=== PATIENT | male | born 1965 | race Two or more races ===

== ENCOUNTER 2020-10-01 21:52 | Inpatient (IN) ==
[2020-10-01 22:43] LABS: Mean Corpuscular Hemoglobin 26.3 pg (25-34); Mean Corpuscular Hgb Conc 31.6 g/dL (32-36); Mean Corpuscular Volume 83.2 fL (80-100); Mean Platelet Volume 9.6 fL (7.4-10.4); Platelet Count 298 K/uL (130-400); RDW Coefficient of Variation 12.5 % (11.5-14.5); RDW Standard Deviation 37.6 fL (36.4-46.3); Red Blood Count 4.57 M/uL (4.7-6.1); White Blood Count 7.73 K/uL (4.8-10.8)
[2020-10-01 22:55] LABS: INR 1.1 (0.9-1.1); Partial Thromboplastin Ratio 1.1; Prothrombin Time 11.1 Seconds (9.0-12.0)
[2020-10-01 23:03] LABS: Alanine Aminotransferase 11 U/L (12-78); Albumin Level 2.7 gm/dl (3.4-5.0); Aspartate Aminotransferase 19 U/L (15-37); BUN Creatinine Ratio 21.1 (10-20); Blood Urea Nitrogen 20 mg/dl (7-18); Calcium 8.3 mg/dl (8.5-10.1); Carbon Dioxide 23 mmol/L (21-32); Chloride 99 mmol/L (98-107); Creatinine Clr Calc Pharmacy 87.5 ml/min; Est GFR (Non-African American) 89.8; Glucose 197 mg/dl (70-99); Potassium 4.6 mmol/L (3.5-5.1); Sodium 133 mmol/L (136-145)
--- NOTE | 2020-10-01 23:03 | Emergency Department Note ---
Impression & Plan Pneumonia due to 2019-nCoV, Hypoxia ED Provider Note NAME: SHANEL WARREN AGE: 55 SEX: M : 1965 ARRIVES VIA: Walk-In INFORMANT: Patient, ED PROVIDER(S): John Keyes DO CHIEF COMPLAINT: Shortness of breath HPI: The patient is a 55-year-old male who presented to the emergency department for an evaluation of shortness of breath. The patient was recently diagnosed with COVID-19. He states at that time he was having symptoms consistent with COVID-19 including loss of taste and smell. Generalized weakness and difficulty breathing. He states that over the course of the last week he started to feel improved but then he started feeling worse over the last 24 hours. He started noticing significant shortness of breath with any ambulation. He started noticing a dry cough. He denies having any chest pain or swelling in the legs. He checked his pulse ox at home and it was 85%. He called his primary care ph ysician and was instructed to come to the emergency department. ROS: See above HPI for pertinent positives & negatives. A total of 10 systems reviewed and were otherwise negative. PAST MEDICAL HISTORY: See Below PAST SURGICAL HISTORY: See Below FAMILY HISTORY: See Below SOCIAL HISTORY: See Below HOME MEDICATIONS: See Below ALLERGIES: See Below VITALS: See Below PHYSICAL EXAMINATION: GENERAL: Patient is awake alert in no acute distress patient is resting comfortably and showing no signs of anxiety EYES: The conjunctivae are clear. The pupils are round and reactive. EARS, NOSE, MOUTH AND THROAT: The nose is without any evidence of any deformity. Mucous membranes are moist. Tongue is midline. NECK: The neck is nontender and supple. RESPIRATORY: Diminished breath sounds are noted throughout. There is no conversational dyspnea noted. CARDIOVASCULAR: Regular rate and rhythm noted there no murmurs rubs or gallops normal S1 normal S2. GASTROINTESTINAL: The abdomen is soft. Abdomen is nontender. MUSCULOSKELETAL/EXTREMITIES: There is no evidence of gross deformity full range of motion is noted in the hips and shoulders. SKIN: There is no obvious evidence of any rash. There are no petechiae, pallor or cyanosis noted. NEUROLOGIC: Patient is awake alert and oriented x3. MEDICAL DECISION MAKING: The patient is a 55-year-old male who presented to the emergency department for an evaluation of difficulty breathing. The patient was recently diagnosed with COVID-19 infection. He is noticed especially over the last 24 hours that he is having significant dyspnea on exertion. The patient is EKG did not show any acute change from previous. Chest x-ray does appear to be more consistent with an infiltrative process. I discussed the patient's laboratory and radiographic studies with him. He was treated with IV Decadron. He was placed on supplemental oxygen. I discussed his case with the on-call [facility] hospitalist. They have agreed to evaluate the patient in the emergency department for further management and disposition. Triage Nursing notes reviewed. Prior medical records reviewed Vital Signs: reviewed and remarkable for borderline hypoxia. Differential diagnosis: Reactive airway disease, pneumonia, pneumothorax, COPD, CHF, infections, cardiac ischemia, pulmonary embolism, musculoskeletal, gastrointestinal, as well as other pathologies. ER treatment provided: See below Diagnostics interpreted by me: ECG: EKG was obtained in the emergency department. My interpretation is normal sinus rhythm at 93 bpm. Right bundle branch block pattern was noted. There was no PVCs. This was compared to a tracing from May 11, 2018. No significant changes were noted. Cardiac Monitoring: An order was placed for continuous cardiac monitoring. The monitor shows a rate of 95 bpm with sinus rhythm. Laboratory studies: As stated above and show below. Imaging studies: See below Consultation(s): 2340: I discussed this case with Dr. Villalobos who is on-call for the [facility]. Past Med/Surg History Medical History JORDIN (acute kidney injury) COVID-19 Diabetes Psoriasis Social History Smoking Status: Never smoker Feels Safe at Home: Yes Allergies Allergies Allergy/AdvReac Type Severity Reaction Status Date / Time Bactrim AdvReac Mild GI SYMPTOMS Verified 05/15/18 00:40 sulfamethoxazole AdvReac Mild GI SYMPTOMS Verified 10/01/20 22:45 trimethoprim AdvReac Mild GI SYMPTOMS Verified 10/01/20 22:45 EGGS AdvReac Mild GI SYMPTOMS Uncoded 10/01/20 22:45 Home Meds Home Medications Medication Instructions Recorded Confirmed aspirin [Aspir-Low] 81 mg PO DAILY 10/01/20 10/01/20 atorvastatin [Lipitor] 40 mg PO DAILY 10/01/20 10/01/20 cyanocobalamin (vitamin B-12) 1,000 mcg PO DAILY 10/01/20 10/01/20 [Vitamin B-12] empagliflozin [Jardiance] 25 mg PO DAILY 10/01/20 10/01/20 fluocinonide 1 applic TOPICAL DAILY PRN 10/01/20 10/01/20 insulin aspart U-100 [Novolog See Rx Instructions .ROUTE .COMPLEX 10/01/20 10/01/20 Flexpen U-100 Insulin] insulin degludec [Tresiba 24 unit SUBCUT DAILY 10/01/20 10/01/20 FlexTouch U-200] metformin [Glucophage] 1,000 mg PO BID 10/01/20 10/01/20 ondansetron HCl 8 mg PO Q8H PRN 10/01/20 10/01/20 pantoprazole [Protonix] 40 mg PO DAILY 10/01/20 10/01/20 sertraline [Zoloft] 150 mg PO DAILY 10/01/20 10/01/20 Results & Data (ED) Vital Signs Vital Signs - 24 hr 10/01/20 21:57 10/01/20 22:39 10/01/20 23:30 Temperature 37.1 C Temperature Source Oral Pulse Rate 96 H 90 Pulse Rhythm Regular Respiratory Rate 19 22 Respiratory Effort / Characteristics Non-Labored Spontaneous Labored Respiratory Depth Normal Deep Respiratory Pattern Regular Blood Pressure 108/64 Blood Pressure Mean 78 Pulse Oximetry 91 83 L Oxygen Delivery Method Room Air Room Air Oxygen Flow Rate Sepsis Recent Fever Within 48 Hours Yes Sepsis New/Unexplained Change in Mental Status No Sepsis Action Taken by Nursing No Action Required 10/01/20 23:35 Temperature Temperature Source Pulse Rate 90 Pulse Rhythm Regular Respiratory Rate 20 Respiratory Effort / Characteristics Respiratory Depth Respiratory Pattern Blood Pressure Blood Pressure Mean Pulse Oximetry 95 Oxygen Delivery Method Nasal Cannula Oxygen Flow Rate 3 Sepsis Recent Fever Within 48 Hours Sepsis New/Unexplained Change in Mental Status Sepsis Action Taken by Custodial Medications Current Medication List: was personally reviewed by me Laboratory Data Attestation: I reviewed the patient's lab results. Result diagrams: 10/01/20 22:33 10/01/20 22:33 Lab Results 10/01/20 10/01/20 10/01/20 Range/Units 22:33 22:33 22:33 WBC 7.73 (4.8-10.8) K/uL RBC 4.57 L (4.7-6.1) M/uL Hgb 12.0 L (14.0-18.0) g/dL Hct 38.0 L (42-52) % MCV 83.2 (80-100) fL MCH 26.3 (25-34) pg MCHC 31.6 L (32-36) g/dL RDW Std Deviation 37.6 (36.4-46.3) fL RDW Coeff of Erick 12.5 (11.5-14.5) % Plt Count 298 (130-400) K/uL MPV 9.6 (7.4-10.4) fL Immature Gran % (Auto) 0.3 % Neut % (Auto) 83.2 % Lymph % (Auto) 10.1 % [facility] % (Auto) 6.3 % Eos % (Auto) 0.0 % Baso % (Auto) 0.1 % Neut # (Auto) 6.43 (1.4-6.5) K/uL Lymph # (Auto) 0.78 L (1.2-3.4) K/uL [facility] # (Auto) 0.49 (0.11-0.59) K/uL Eos # (Auto) 0.00 (0-0.5) K/uL Baso # (Auto) 0.01 (0-0.2) K/uL Immature Gran # (Auto) 0.02 (0.00-0.02) K/uL PT 11.1 (9.0-12.0) Seconds INR 1.1 (0.9-1.1) APTT 32.0 H (21.0-31.0) Seconds PTT Ratio 1.1 D-Dimer 870 H* (0-500) ug/L FEU Sodium 133 L (136-145) mmol/L Potassium 4.6 (3.5-5.1) mmol/L Chloride 99 (98-107) mmol/L Carbon Dioxide 23 (21-32) mmol/L Anion Gap 12.0 H (3-11) BUN 20 H (7-18) mg/dl Creatinine 0.95 (0.6-1.4) mg/dl Est Cr Clr Drug Dosing 87.5 ml/min Est GFR ( Amer) 104.0 Est GFR (Non-Af Amer) 89.8 BUN/Creatinine Ratio 21.1 H (10-20) Glucose 197 H (70-99) mg/dl Calcium 8.3 L (8.5-10.1) mg/dl Magnesium 2.1 (1.8-2.4) mg/dl Total Bilirubin 0.8 (0.2-1) mg/dl AST 19 (15-37) U/L ALT 11 L (12-78) U/L Alkaline Phosphatase 54 (45-117) U/L Troponin I < 0.015 (0-0.045) ng/ml NT-Pro-B Natriuret Pep 419 (0-900) pg/ml Total Protein 7.3 (6.4-8.2) gm/dl Albumin 2.7 L (3.4-5.0) gm/dl Globulin 4.6 H (2.5-4.0) gm/dl Albumin/Globulin Ratio 0.6 L (0.9-2) COVID-19 Eval Order SARS-CoV-2, RNA, NAAT (NEGATIVE) Blood Type Antibody Screen 10/01/20 10/01/20 10/01/20 Range/Units 22:33 22:41 22:41 WBC (4.8-10.8) K/uL RBC (4.7-6.1) M/uL Hgb (14.0-18.0) g/dL Hct (42-52) % MCV (80-100) fL MCH (25-34) pg MCHC (32-36) g/dL RDW Std Deviation (36.4-46.3) fL RDW Coeff of Erick (11.5-14.5) % Plt Count (130-400) K/uL MPV (7.4-10.4) fL Immature Gran % (Auto) % Neut % (Auto) % Lymph % (Auto) % [facility] % (Auto) % Eos % (Auto) % Baso % (Auto) % Neut # (Auto) (1.4-6.5) K/uL Lymph # (Auto) (1.2-3.4) K/uL [facility] # (Auto) (0.11-0.59) K/uL Eos # (Auto) (0-0.5) K/uL Baso # (Auto) (0-0.2) K/uL Immature Gran # (Auto) (0.00-0.02) K/uL PT (9.0-12.0) Seconds INR (0.9-1.1) APTT (21.0-31.0) Seconds PTT Ratio D-Dimer (0-500) ug/L FEU Sodium (136-145) mmol/L Potassium (3.5-5.1) mmol/L Chloride (98-107) mmol/L Carbon Dioxide (21-32) mmol/L Anion Gap (3-11) BUN (7-18) mg/dl Creatinine (0.6-1.4) mg/dl Est Cr Clr Drug Dosing ml/min Est GFR ( Amer) Est GFR (Non-Af Amer) BUN/Creatinine Ratio (10-20) Glucose (70-99) mg/dl Calcium (8.5-10.1) mg/dl Magnesium (1.8-2.4) mg/dl Total Bilirubin (0.2-1) mg/dl AST (15-37) U/L ALT (12-78) U/L Alkaline Phosphatase (45-117) U/L Troponin I (0-0.045) ng/ml NT-Pro-B Natriuret Pep (0-900) pg/ml Total Protein (6.4-8.2) gm/dl Albumin (3.4-5.0) gm/dl Globulin (2.5-4.0) gm/dl Albumin/Globulin Ratio (0.9-2) COVID-19 Eval Order Covid19 IDNow [facility] SARS-CoV-2, RNA, NAAT POSITIVE A* (NEGATIVE) Blood Type AB Positive Antibody Screen NEGATIVE Imaging Data Attestation: I personally reviewed and interpreted this imaging study as follows: My Impression: 1 view the chest x-ray was obtained in the emergency department. My interpretation is borderline cardiomegaly. There is no free air. Diffuse interstitial infiltrates were noted. This was compared to a chest x-ray from September [id number]. There is an increase in the interstitial markings. Blood Pressure Blood Pressure Findings: Normal blood pressure Discharge Plan Visit Data Chief Complaint: Shortness of Breath/Dyspnea Stated Complaint: OXGYEN LEVEL IS LOW ED Provider: John Keyes Discharge Problem: Pneumonia due to 2019-nCoV, Hypoxia Patient Disposition: Being Evaluated by Hospitalist Condition: Good Forms Stand Alone Forms: My [facility] [employer] Prescriptions Prescriptions: No Action atorvastatin [Lipitor] 40 mg tablet 40 mg PO DAILY RF: 0 sertraline [Zoloft] 100 mg tablet 150 mg PO DAILY RF: 0 cyanocobalamin (vitamin B-12) [Vitamin B-12] 1,000 mcg Tablet 1,000 mcg PO DAILY RF: 0 fluocinonide 0.05 % ointment 1 applic TOPICAL DAILY PRN (Reason: flare ups) RF: 0 pantoprazole [Protonix] 40 mg tablet,delayed release (DR/EC) 40 mg PO DAILY RF: 0 metformin [Glucophage] 1,000 mg tablet 1,000 mg PO BID RF: 0 insulin aspart U-100 [Novolog Flexpen U-100 Insulin] 100 unit/mL (3 mL) insulin pen See Rx Instructions .ROUTE .COMPLEX RF: 0 Tresiba FlexTouch U-200 200 unit/mL (3 mL) insulin pen 24 unit SUBCUT DAILY RF: 0 Jardiance 25 mg tablet 25 mg PO DAILY RF: 0 ondansetron HCl 8 mg Tablet 8 mg PO Q8H PRN (Reason: Nausea) RF: 0 aspirin [Aspir-Low] 81 mg Tablet,Delayed Release (Dr/Ec) 81 mg PO DAILY RF: 0 Referrals Referrals: Jacob Reyes DO [Primary Care Provider] -
[2020-10-01 23:08] LABS: Albumin Globulin Ratio 0.6 (0.9-2); Alkaline Phosphatase 54 U/L (45-117); Bilirubin,Total 0.8 mg/dl (0.2-1); Globulin 4.6 gm/dl (2.5-4.0); NT Pro B Type Natriuretic Pept 419 pg/ml (0-900); Total Protein 7.3 gm/dl (6.4-8.2); Troponin I < 0.015 ng/ml (0-0.045)
[2020-10-01 23:22] LABS: D Dimer 870 ug/L FEU (0-500)
[2020-10-01 23:28] LABS: Basophils # (auto) 0.01 K/uL (0-0.2); Basophils % (auto) 0.1 %; Immature Granulocytes # (auto) 0.02 K/uL (0.00-0.02); Immature Granulocytes % (auto) 0.3 %; Lymphocytes # (auto) 0.78 K/uL (1.2-3.4); Lymphocytes % (auto) 10.1 %; Monocytes # (auto) 0.49 K/uL (0.11-0.59); Monocytes % (auto) 6.3 %; Neutrophils # (auto) 6.43 K/uL (1.4-6.5); Neutrophils % (auto) 83.2 %
[2020-10-01] MEDS ORDERED: DEXAMETHASONE SOD INJ 10 MG/ML VIAL IV ONE (23:37)
[2020-10-01 23:59] LABS: Magnesium 2.1 mg/dl (1.8-2.4)
[2020-10-02] MEDS ORDERED: ALBUTEROL HFA 8 GM INHALER INH ONE (00:37)
--- NOTE | 2020-10-02 01:03 | History & Physical Report ---
Date of Service October 02, 2020 Assessment & Plan (1) Acute hypoxemic respiratory failure: Severe COVID-19 pneumonia DM2 insulin requiring, well-controlled as of recent outpatient hemoglobin A1c of 6.03 July 2020 hyperlipidemia on statin Rx chronic anemia, hemoglobin better than baseline likely secondary to hemoconcentration from clinical dehydration past alcohol abuse Medical telemetry Supplemental O2 Decadron course Remdesivir first dose now Pulmonary consult Re: Hypoxemic respiratory failure, severe COVID-19 pneumonia Basal insulin, ISS BG goal [id number], carb count coverage, update hemoglobin A1c DVT prophylaxis per Lovenox subcu Full code Text document was generated using [employer] voice recognition software. It may contain grammatical or spelling errors. Kindly contact undersigned for clarification of any documentation item in question. History of Present Illness Chief Complaint: Low O2 Primary Care Provider: Jacob Reyes, History obtained from patient and records. Medical history significant for DM2 insulin requiring, hyperlipidemia, chronic anemia (baseline hemoglobin of 11), past alcohol abuse. Last week patient noted generalized weakness, chills, fatigue symptoms. Sick COVID-19 contacts at home. Outpatient COVID-19 test noted to be positive. Patient advised to quarantine and to adhere to supportive management at home. Yesterday, patient noted shortness of breath worse on exertion with dry cough symptoms. No chest pain. O2 sats noted to be 80s on pulse ox at home. At the ER, patient received Decadron. Medical History as above Surgical History : Cataract surgery Family History : Diabetes, stroke Personal/Social history : Non-smoker, possible alcohol abuse, [place] ethnicity Allergies Allergy/AdvReac Type Severity Reaction Status Date / Time Bactrim AdvReac Mild GI SYMPTOMS Verified 05/15/18 00:40 sulfamethoxazole AdvReac Mild GI SYMPTOMS Verified 10/01/20 22:45 trimethoprim AdvReac Mild GI SYMPTOMS Verified 10/01/20 22:45 EGGS AdvReac Mild GI SYMPTOMS Uncoded 10/01/20 22:45 Home Medications Medication Instructions Recorded Confirmed Type aspirin [Aspir-Low] 81 mg PO DAILY 10/01/20 10/01/20 History atorvastatin [Lipitor] 40 mg PO DAILY 10/01/20 10/01/20 History cyanocobalamin (vitamin B-12) 1,000 mcg PO DAILY 10/01/20 10/01/20 History [Vitamin B-12] empagliflozin [Jardiance] 25 mg PO DAILY 10/01/20 10/01/20 History fluocinonide 1 applic TOPICAL DAILY PRN 10/01/20 10/01/20 History insulin aspart U-100 [Novolog See Rx Instructions .ROUTE .COMPLEX 10/01/20 10/01/20 History Flexpen U-100 Insulin] insulin degludec [Tresiba 24 unit SUBCUT DAILY 10/01/20 10/01/20 History FlexTouch U-200] metformin [Glucophage] 1,000 mg PO BID 10/01/20 10/01/20 History ondansetron HCl 8 mg PO Q8H PRN 10/01/20 10/01/20 History pantoprazole [Protonix] 40 mg PO DAILY 10/01/20 10/01/20 History sertraline [Zoloft] 150 mg PO DAILY 10/01/20 10/01/20 History Past Med/Surg History Medical History JORDIN (acute kidney injury) COVID-19 Diabetes Psoriasis Social History Smoking Status: Never smoker Feels Safe at Home: Yes Review of Systems Review of Systems: As per HPI, all 10 systems reviewed, all other ROS negative Physical Exam Physical Exam: GENERAL: Comfortable, pleasant, no respiratory distress SKIN: Pallor , warm HEENT: Partial alopecia, bespectacled, pale palpebral conjunctivae, no ptosis, dry buccal mucosa, nasal cannula in place NECK : Supple, no tenderness CHEST : Decreased breath sounds, occasional expiratory wheezes, no tenderness HEART : RRR, no obvious murmurs ABDOMEN: Some distention, nontender EXTREMITIES : No LE swelling/tenderness, no other conspicuous deformities noted NEUROLOGIC : Coherent, no facial asymmetry, no other gross focality Results & Data Results & Data ([facility]) Vital Signs (Past 12 Hours) Vital Signs Temp Pulse Resp BP Pulse Ox 10/01/20 23:35 90 20 95 10/01/20 23:30 90 22 83 L 10/01/20 22:34 91 H 39 H 122/75 90 10/01/20 21:57 37.1 C 96 H 19 108/64 91 Laboratory Results Laboratory Results WBC 7.73 K/uL (4.8-10.8) 10/01/20 22: RBC 4.57 M/uL (4.7-6.1) L 10/01/20 22:33 Hgb 12.0 g/dL (14.0-18.0) L 10/01/20 22:33 Hct 38.0 % (42-52) L 10/01/20 22:33 MCV 83.2 fL (80-100) 10/01/20 22:33 MCH 26.3 pg (25-34) 10/01/20 22: MCHC 31.6 g/dL (32-36) L 10/01/20 22:33 RDW Std Deviation 37.6 fL (36.4-46.3) 10/01/20 22: RDW Coeff of Erick 12.5 % (11.5-14.5) 10/01/20: Plt Count 298 K/uL (130-400) 10/01/20 22: MPV 9.6 fL (7.4-10.4) 10/01/20 22:33 Immature Gran % (Auto) 0.3 % 10/01/20 22:33 Neut % (Auto) 83.2 % 10/01/20 22:33 Lymph % (Auto) 10.1 % 10/01/20 22:33 [place] % (Auto) 6.3 % 10/01/20 22:33 Eos % (Auto) 0.0 % 10/01/20 22:33 Baso % (Auto) 0.1 % 10/01/20 22:33 Neut # (Auto) 6.43 K/uL (1.4-6.5) 10/01/20 22:33 Lymph # (Auto) 0.78 K/uL (1.2-3.4) L 10/01/20 22:33 [place] # (Auto) 0.49 K/uL (0.11-0.59) 10/01/20 22:33 Eos # (Auto) 0.00 K/uL (0-0.5) 10/01/20 22:33 Baso # (Auto) 0.01 K/uL (0-0.2) 10/01/20 22:33 Immature Gran # (Auto) 0.02 K/uL (0.00-0.02) 10/01/20 22:33 PT 11.1 Seconds (9.0-12.0) 10/01/20 22:33 INR 1.1 (0.9-1.1) 10/01/20 22:33 APTT 32.0 Seconds (21.0-31.0) H 10/01/20 22:33 PTT Ratio 1.1 10/01/20 22:33 D-Dimer 870 ug/L FEU (0-500) H* 10/01/20 22:33 Sodium 133 mmol/L (136-145) L 10/01/20 22:33 Potassium 4.6 mmol/L (3.5-5.1) 10/01/20 22:33 Chloride 99 mmol/L (98-107) 10/01/20 22:33 Carbon Dioxide 23 mmol/L (21-32) 10/01/20 22:33 Anion Gap 12.0 (3-11) H 10/01/20 22:33 BUN 20 mg/dl (7-18) H 10/01/20 22:33 Creatinine 0.95 mg/dl (0.6-1.4) 10/01/20 22:33 Est Cr Clr Drug Dosing 87.5 ml/min 10/01/20 22:33 Est GFR ( Amer) 104.0 10/01/20 22:33 Est GFR (Non-Af Amer) 89.8 10/01/20 22:33 BUN/Creatinine Ratio 21.1 (10-20) H 10/01/20 22:33 Glucose 197 mg/dl (70-99) H 10/01/20 22:33 Calcium 8.3 mg/dl (8.5-10.1) L 10/01/20 22:33 Magnesium 2.1 mg/dl (1.8-2.4) 10/01/20 22:33 Total Bilirubin 0.8 mg/dl (0.2-1) 10/01/20 22:33 AST 19 U/L (15-37) 10/01/20 22:33 ALT 11 U/L (12-78) L 10/01/20 22:33 Alkaline Phosphatase 54 U/L (45-117) 10/01/20 22:33 Troponin I < 0.015 ng/ml (0-0.045) 10/01/20 22:33 NT-Pro-B Natriuret Pep 419 pg/ml (0-900) 10/01/20 22:33 Total Protein 7.3 gm/dl (6.4-8.2) 10/01/20 22:33 Albumin 2.7 gm/dl (3.4-5.0) L 10/01/20 22:33 Globulin 4.6 gm/dl (2.5-4.0) H 10/01/20 22:33 Albumin/Globulin Ratio 0.6 (0.9-2) L 10/01/20 22:33 COVID-19 Eval Order Covid19 IDNow [facility] 10/01/20 22:41 SARS-CoV-2, RNA, NAAT POSITIVE (NEGATIVE) A* 10/01/20 22:41 Blood Type AB Positive 10/01/20 22:33 Antibody Screen NEGATIVE 10/01/20 22:33 Diagnostic Findings Chest x-ray as per my interpretation atelectasis, interstitial infiltrates EKG as per my interpretation : Rate 95, NSR, normal axis, right bundle branch block, no ischemia
[2020-10-02 01:38] LABS: Base Excess ABG -3.8 mEq/L (-9-1.8); HCO3 ABG 21 mmol/L (19-24); Oxygen Saturation ABG 92.9 % (90-95); PCO2 ABG 36 mmHg (35-46); PO2 ABG 73 mmHg (80-95); pH ABG 7.38 (7.35-7.45)
[2020-10-02 01:50] LABS: Allen Test POS (Pos)
[2020-10-02] MEDS ORDERED: SODIUM CHLORIDE 0.9% 1000ML 1,000 ML IV ONE (03:00)
[2020-10-02] MEDS ORDERED: INSULIN GLARGINE SOLOSTAR 100 UNITS/ML 3 ML PEN SC STA (03:00)
[2020-10-02] MEDS ORDERED: GLUCOSE 10 TABS/TUBE PO PRN (07:03)
[2020-10-02] MEDS ORDERED: GLUCAGON FOR INJ 1 MG VIAL SQ PRN (07:03)
[2020-10-02] MEDS ORDERED: GLUCOSE 40% GEL 15 GM TUBE PO PRN (07:03)
[2020-10-02] MEDS ORDERED: CARBOHYDRATES FOR HYPOGLYCEMIA PO PRN (07:03)
[2020-10-02] MEDS ORDERED: PROMETHAZINE HCL 12.5 MG in SODIUM CHLORIDE 0.9% 50 ML IV PRN (07:03)
[2020-10-02] MEDS ORDERED: ACETAMINOPHEN 325 MG TAB PO PRN (07:03)
[2020-10-02] MEDS ORDERED: traMADol HCL 50 MG TABLET PO PRN (07:03)
[2020-10-02] MEDS ORDERED: DEXTROSE 50% 50 ML SYRINGE IV PRN (07:03)
--- NOTE | 2020-10-02 07:36 | XRay Report ---
XR chest 1V portable CLINICAL HISTORY: Dyspnea COMPARISON STUDY: 09/23/2020 FINDINGS: The heart is borderline enlarged. Since the prior study, the patient developed bilateral pu lmonary opacities. Diagnostic considerations include multifocal pneumonia versus congestive failure. Correlation with Covid 19 testing recommended.[ IMPRESSION: 1. Bilateral predominantly interstitial airspace opacities. Diagnostic considerations include multifo ector pneumonia versus congestive failure. Clinical and radiographic follow-up is recommended. ACT 112: Negative or not required by law. Electronically signed by: Vimal Barrientos M.D. 10/02/2020 7:35 AM
[2020-10-02] MEDS ORDERED: REMDESIVIR 200 MG in SODIUM CHLORIDE 0.9% 210 ML IV ONE (07:45)
[2020-10-02] MEDS: SERTRALINE HCL 50 MG TABLET PO SCH (07:56)
[2020-10-02] MEDS: ASPIRIN 81 MG ECTAB PO SCH (07:56)
[2020-10-02] MEDS: ATORVASTATIN 40 MG TAB PO SCH (07:56)
[2020-10-02] MEDS: PANTOprazole 40 MG TAB PO SCH (07:56)
[2020-10-02] MEDS: guaiFENesin 600 MG TABCR PO SCH ×2 (07:56→20:03)
[2020-10-02] MEDS: CYANOCOBALAMIN 500 MCG TABLET (VITAMIN B-12) PO SCH (07:56)
[2020-10-02] MEDS: ENOXAPARIN INJ 40 MG/0.4 ML SYR SQ SCH (07:57)
[2020-10-02] MEDS: INSULIN ASPART 100 UNITS/ML 3 ML PEN SC SCH ×4 (08:36→20:39)
[2020-10-02] MEDS ORDERED: SODIUM CHLORIDE 0.9% 10ML FLUSH IV SCH (09:45)
[2020-10-02] MEDS: ALBUTEROL HFA 8 GM INHALER INH SCH ×3 (11:23→20:20)
--- NOTE | 2020-10-02 11:40 | Electrocardiogram Report ---
Test Reason : Blood Pressure : / mmHG Vent. Rate : 093 BPM Atrial Rate : 093 BPM P-R Int : 192 ms QRS Dur : 138 ms QT Int : 406 ms P-R-T Axes : 001 105 029 degrees QTc Int : 504 ms Normal sinus rhythm Right bundle branch block Abnormal ECG When compared with ECG of 11-MAY-2018 06:42, No significant change was found Confirmed by John Sheikh ([id number]) on 10/02/2020 11:40:41 AM Referred By: REFERRED SELF Confirmed By:John Sheikh
[2020-10-02 12:08] LABS: C Reactive Protein 15.3 mg/dl (0-0.29); Ferritin 633.6 ng/ml (8-388)
--- NOTE | 2020-10-02 13:58 | Communication Note ---
Date of Service: October 02, 2020 I did a chart review of this patient. Patient was not physically seen due to the COVID-19 pandemic and an effort to reduce PPE utilization and reduce ex posure risk. Patient with evidence of Covid pneumonia and hypoxemic respiratory failure. Chest x-ray demonstrates mild bilateral interstitial infiltrates with lower lobe atelectasis. COVID-19 testing was positive on 09/23/2020 and 10/01/2020. Remdesivir likely has minimal benefit in this patient given that he was Covid positive over 1 week ago. Procalcitonin was 0.12. Antibiotics are not indicated at this time. Decadron can be continued for 7 to 10 days. Recommend usual supportive care such as self proning, ambulation and incentive spirometry. I would recommend discontinuing the IV fluids and using Lasix on a as needed basis. Continue to maintain saturations between 92 and 94% with supplemental oxygen. Please call with questions. Thank you.
[2020-10-02] MEDS ORDERED: FUROSEMIDE 40 MG in SYRINGE 0 ML IV ONE (16:00)
--- NOTE | 2020-10-02 17:59 | Hospitalist Progress Note ---
Date of Service October 02, 2020 Assessment & Plan (1) Acute hypoxemic respiratory failure: Acute respiratory failure with hypoxia Multifocal COVID pneumonia COVID Screen:Positive CXR:Bilateral predominantly interstitial airspace opacities. Diagnostic considerations include multifocal pneumonia versus congestive failure. Clinical and radiographic follow-up is recommended. Procalcitonin:0.12 Troponin negative CRP:15.30 Ferritin:633.6 D-Dimer:870 Blood Cultures:Pending Continue Remdesivir, Dexamethasone as per Protocol Coalescent plasma when available as per patient's consent Cotinue Isolation precautions--Airborne/Contact Encouraged frequent Proning Lasix as needed Albuterol PRN Continue Supplemental Oxygen as needed DVT prophylaxis Monitor LFTs, renal function while on Remdesivir No indication for antibiotics currently DM II HhA1C: 6.03 July 2020 Hold PO meds Continue insulin therapy while hospitalized Monitor BGs Glycemic Pharmacy consulted Hyperlipidemia On Lipitor Monitor LFTs Elevated D dimer Due to COVID Consider further work up if clinically indicated Chronic Normocytic Anemia Monitor CBC Past alcohol abuse As per records DVT Px: Lovenox SQ Code Status Full code Admission and Anticipated Discharge Date Admission Date: October 02, 2020 Subjective Patient is seen and examined at bedside States feeling much better today Appetite improved today Less cough Denies chest pain, shortness of breath, dizziness, nausea, abdominal pain, diarrhea, headache Offers no other complaints Saturating low 90s on 2 L of supplemental oxygen Review of Systems Review of Systems: All systems reviewed & are unremarkable except as noted in HPI & below Physical Exam Physical Exam: Physical Exam: Vitals signs as noted above General Appearance:Moderately built and nourished, no apparent distress Head: normocephalic, Atraumatic Eyes: normal inspection, EOMI Neck: supple, Trachea midline Respiratory/Chest: Normal breath sounds, Minimal basal crackles Cardiovascular: S1, S2, No murmur Abdomen/GI:Soft, Non tender, Bowel sounds present Extremities/Musculoskelatal:normal inspection, no edema Neurologic/Psych:AAOX3, grossly no focal neurological deficits Skin: normal color, warm, +Psoriatic Lesions on extremities Results & Data Results & Data ([facility]) Vital Signs (Past 12 Hours) Vital Signs Temp Pulse Pulse Resp BP BP Pulse Ox 10/02/20 16:45 36.6 C 80 20 135/80 90 10/02/20 16:00 81 10/02/20 15:31 71 18 97 10/02/20 11:50 36.4 C L 77 20 112/70 91 10/02/20 11:24 78 18 95 10/02/20 07:23 78 10/02/20 07:01 36.9 C 20 142/75 H 95 10/02/20 06:37 78 25 H 111/63 95 10/02/20 06:00 79 25 H 127/72 92 Laboratory Results Short CBC 10/01/20 Range/Units 22:33 WBC 7.73 (4.8-10.8) K/uL Hgb 12.0 L (14.0-18.0) g/dL Hct 38.0 L (42-52) % Plt Count 298 (130-400) K/uL BMP 10/01/20 22:33 Sodium 133 L Potassium 4.6 Chloride 99 Carbon Dioxide 23 BUN 20 H Creatinine 0.95 Glucose 197 H Calcium 8.3 L Cardiac Enzymes 10/01/20 10/02/20 Range/Units 22:33 11:07 Total Creatine Kinase 67 (39-308) U/L Troponin I < 0.015 (0-0.045) ng/ml Liver Function 10/01/20 Range/Units 22:33 Total Bilirubin 0.8 (0.2-1) mg/dl AST 19 (15-37) U/L ALT 11 L (12-78) U/L Alkaline Phosphatase 54 (45-117) U/L Albumin 2.7 L (3.4-5.0) gm/dl
[2020-10-02] MEDS ORDERED: PHARMACY GLYCEMIC MGMT CONSULT PRN (19:08)
[2020-10-02] MEDS ORDERED: INSULIN GLARGINE SOLOSTAR 100 UNITS/ML 3 ML PEN SC ONE (19:15)
[2020-10-02] MEDS ORDERED: INSULIN GLARGINE SOLOSTAR 100 UNITS/ML 3 ML PEN SC SCH (21:00)
[2020-10-03] MEDS: dexAMETHasone 6 MG in SYRINGE 0 ML IV SCH (00:47)
[2020-10-03] MEDS: INSULIN ASPART 100 UNITS/ML 3 ML PEN SC SCH ×6 (01:01→20:08)
[2020-10-03 07:19] LABS: Basophils # (auto) 0.01 K/uL (0-0.2); Basophils % (auto) 0.2 %; Hematocrit (blood only) 36.6 % (42-52); Hemoglobin 11.7 g/dL (14.0-18.0); Immature Granulocytes # (auto) 0.01 K/uL (0.00-0.02); Immature Granulocytes % (auto) 0.2 %; Lymphocytes # (auto) 0.58 K/uL (1.2-3.4); Lymphocytes % (auto) 9.6 %; Mean Corpuscular Hemoglobin 26.3 pg (25-34); Mean Corpuscular Volume 82.2 fL (80-100); Mean Platelet Volume 10.1 fL (7.4-10.4); Monocytes # (auto) 0.34 K/uL (0.11-0.59); Monocytes % (auto) 5.6 %; Neutrophils # (auto) 5.11 K/uL (1.4-6.5); Neutrophils % (auto) 84.4 %; Platelet Count 430 K/uL (130-400); RDW Coefficient of Variation 12.4 % (11.5-14.5); RDW Standard Deviation 37.5 fL (36.4-46.3); Red Blood Count 4.45 M/uL (4.7-6.1); White Blood Count 6.05 K/uL (4.8-10.8)
[2020-10-03] MEDS: ALBUTEROL HFA 8 GM INHALER INH SCH ×2 (07:24→11:29)
[2020-10-03 07:50] LABS: Alanine Aminotransferase 12 U/L (12-78); Albumin Level 2.6 gm/dl (3.4-5.0); Aspartate Aminotransferase 18 U/L (15-37); BUN Creatinine Ratio 39.1 (10-20); Blood Urea Nitrogen 28 mg/dl (7-18); Calcium 8.9 mg/dl (8.5-10.1); Carbon Dioxide 27 mmol/L (21-32); Chloride 103 mmol/L (98-107); Creatinine Clr Calc Pharmacy 118.9 ml/min; Est GFR (African American) 123.1; Est GFR (Non-African American) 106.2; Glucose 161 mg/dl (70-99); Potassium 4.7 mmol/L (3.5-5.1); Sodium 138 mmol/L (136-145)
[2020-10-03 07:55] LABS: Albumin Globulin Ratio 0.5 (0.9-2); Alkaline Phosphatase 58 U/L (45-117); Bilirubin,Total 0.7 mg/dl (0.2-1); Globulin 4.9 gm/dl (2.5-4.0); Total Protein 7.5 gm/dl (6.4-8.2); Troponin I < 0.015 ng/ml (0-0.045)
[2020-10-03] MEDS: ASPIRIN 81 MG ECTAB PO SCH (08:21)
[2020-10-03] MEDS: ATORVASTATIN 40 MG TAB PO SCH (08:21)
[2020-10-03] MEDS: SERTRALINE HCL 50 MG TABLET PO SCH (08:21)
[2020-10-03] MEDS: CYANOCOBALAMIN 500 MCG TABLET (VITAMIN B-12) PO SCH (08:21)
[2020-10-03] MEDS: PANTOprazole 40 MG TAB PO SCH (08:21)
[2020-10-03] MEDS: guaiFENesin 600 MG TABCR PO SCH ×2 (08:22→20:02)
[2020-10-03 08:46] LABS: Estimated Average Glucose 177 mg/dl; Hemoglobin A1C 7.8 % (4.5-5.6)
[2020-10-03] MEDS: ENOXAPARIN INJ 40 MG/0.4 ML SYR SQ SCH (10:28)
[2020-10-03 12:27] LABS: Appearance Urine Clear (Clear); Bilirubin Urine Negative (Negative); Blood Urine Negative (Negative); Color Urine Yellow; Glucose Urine UA 3+ (Negative); Ketones Urine 1+ (Negative); Leukocyte Esterase Urine Negative (Negative); Nitrite Urine Negative (Negative); Protein Urine Negative (Negative); Specific Gravity Urine 1.028 (1.000-1.030); Urobilinogen Urine Negative (Negative)
[2020-10-03] MEDS: REMDESIVIR 100 MG in SODIUM CHLORIDE 0.9% 230 ML IV SCH (12:49)
[2020-10-03] MEDS ORDERED: ALBUTEROL HFA 8 GM INHALER INH PRN (13:19)
--- NOTE | 2020-10-03 14:19 | Pharmacy Report ---
Glycemic Control Consultation - Date of Service October 03, 2020 - Scope Scope: Glycemic Pharmacist consulted for glycemic control and to write orders per [facility] inpatient glycemic control protocol. - Objective Weight: 70.5 kg Accuchecks BSG (last 24hrs): 10/02/20 10/02/20 10/02/20 16:42 16:43 19:58 Glucose POC Glucose 317 H* 321 H* 277 H 10/03/20 10/03/20 10/03/20 00:43 04:31 06:41 Glucose 161 H POC Glucose 243 H 157 H 10/03/20 11:54 Glucose POC Glucose 268 H Laboratory Data (last 24hrs): 10/03/20 06:41 Potassium 4.7 Carbon Dioxide 27 Anion Gap 8.0 Creatinine 0.70 Est Cr Clr Drug Dosing 118.9 HbA1c: Hemoglobin A1c 7.8 % (4.5-5.6) H 10/03/20 06:41 - Recent Pertinent Medications Outpatient Anti-diabetic Regimen: * Jardiance 25 mg daily + metformin 1 gm BIDM + Tresiba 24 units daily + Novolog 10 units + 7 units with meals * A1c = 7.8 % 10/03/20 The patient is currently receiving: * Basal insulin: Lantus 35 units SQ x 1 * Correctional Insulin: Novolog Correction per scale ACHS Goal Range: Low 110 mg/dL - High 140 mg/dL Correction Factor: 25 mg/dL/unit * Prandial insulin: Per carb ratio of 1 unit per 8 grams CHO consumed * Oral Agents: Risk Factors for Insulin Resistance: * Steroids: dexamethasone 6 mg IV daily * Diet: T2DM - Assessment & Plan Assessment & Plan: ASSESSMENT: * Mr Trevino is a 55 y/o M with a PMH of reasonably controlled T2DM on insulin and oral medications who presents with COVID-19. Patient initially given dexamethasone 10 mg at 0200 on 10/02/20. Pharmacy consulted in the evening of 10/02/20 with blood sugars yesterday being [phone] mg/dL. * Patient given Lantus 35 units (1.5x home dose) since morning dose missed. Patient received additional 6 units of Novolog overnight. Fasting BSG was 157 mg/dL. Dexamethasone 6 mg IV given at midnight on 10/03/20. * Due to timing of dexamethasone did not give NPH (would have been 8 hours after dose). Readjusted timing of dexamethasone to be at 0900 tomorrow. * Continue home dose of Lantus 24 units. * Due to elevated lunch BSG tightened Novolog parameters. * Hold oral medications. PLAN FOR INPATIENT GLYCEMIC CONTROL: * Holding outpatient oral diabetes medications * Basal insulin * Lantus 24 units SQ nightly * Bolus insulin * NovoLog per scale ACHS or Q6hrs while NPO * Goal Range: Low 110 mg/dL - High 140 mg/dL * Correction Factor: 20 mg/dL/unit * Nutritional / Prandial insulin per carb ratio of 1 unit per 6 grams CHO consumed * Please note that the plan above was derived based on current level of insulin resistance and hospital stress. These recommendations are appropriate for inpatient admission only. Plan of care upon discharge will need to be reassessed to avoid potential outpatient hypo/hyperglycemia. Thank you.
[2020-10-03] MEDS: SODIUM CHLORIDE 0.9% 10ML FLUSH IV SCH (15:06)
--- NOTE | 2020-10-03 18:38 | Hospitalist Progress Note ---
Date of Service October 03, 2020 Assessment & Plan (1) Acute hypoxemic respiratory failure: Acute respiratory failure with hypoxia Multifocal COVID pneumonia COVID Screen:Positive CXR:Bilateral predominantly interstitial airspace opacities. Diagnostic considerations include multifocal pneumonia versus congestive failure. Clinical and radiographic follow-up is recommended. Procalcitonin:0.12 Troponin negative CRP:15.30 Ferritin:633.6 D-Dimer:870 Blood Cultures:No growth to date Continue Remdesivir, Dexamethasone as per Protocol Coalescent plasma when available as per patient's consent-- Will administer when available Continue Isolation precautions--Airborne/Contact Encouraged frequent Proning Lasix as needed Albuterol PRN Continue Supplemental Oxygen--wean off as able DVT prophylaxis Monitor LFTs, renal function while on Remdesivir No indication for antibiotics currently Continue current medications DM II HhA1C: 6.03 July 2020 Hold PO meds Continue insulin therapy while hospitalized Monitor BGs Glycemic Pharmacy consulted Hyperlipidemia On Lipitor Monitor LFTs Elevated D dimer Due to COVID Consider further work up if clinically indicated Chronic Normocytic Anemia Monitor CBC Past alcohol abuse As per records DVT Px: Lovenox SQ Code Status Full code Admission and Anticipated Discharge Date Admission Date: October 02, 2020 Subjective Patient is seen and examined at bedside No new complaints Minimal cough Still requiring oxygen to maintain Sats Denies chest pain, shortness of breath, dizziness, nausea, abdominal pain, diarrhea, headache Review of Systems Review of Systems: All systems reviewed & are unremarkable except as noted in HPI & below Physical Exam Physical Exam: Physical Exam: Vitals signs as noted above General Appearance:Moderately built and nourished, no apparent distress Head: normocephalic, Atraumatic Eyes: normal inspection, EOMI Neck: supple, Trachea midline Respiratory/Chest: Normal breath sounds, Minimal R basal crackles Cardiovascular: S1, S2, No murmur Abdomen/GI:Soft, Non tender, Bowel sounds present Extremities/Musculoskelatal:normal inspection, no edema Neurologic/Psych:AAOX3, grossly no focal neurological deficits Skin: normal color, warm, +Psoriatic Lesions on extremities Results & Data Results & Data ([facility]) Vital Signs (Past 12 Hours) Vital Signs Temp Pulse Pulse Resp BP Pulse Ox 10/03/20 17:09 36.6 C 73 18 128/77 91 10/03/20 15:49 76 10/03/20 12:06 36.5 C 74 18 124/75 90 12/07/20 11:29 74 18 93 10/03/20 08:34 36.4 C L 20 133/71 90 10/03/20 07:31 63 10/03/20 07:25 70 18 93 Laboratory Results Short CBC 10/03/20 Range/Units 06:41 WBC 6.05 (4.8-10.8) K/uL Hgb 11.7 L (14.0-18.0) g/dL Hct 36.6 L (42-52) % Plt Count 430 H (130-400) K/uL BMP 10/03/20 06:41 Sodium 138 Potassium 4.7 Chloride 103 Carbon Dioxide 27 BUN 28 H Creatinine 0.70 Glucose 161 H Calcium 8.9 Cardiac Enzymes 10/03/20 Range/Units 06:41 Troponin I < 0.015 (0-0.045) ng/ml Liver Function 10/03/20 Range/Units 06:41 Total Bilirubin 0.7 (0.2-1) mg/dl AST 18 (15-37) U/L ALT 12 (12-78) U/L Alkaline Phosphatase 58 (45-117) U/L Albumin 2.6 L (3.4-5.0) gm/dl Urine 10/03/20 Range/Units 12:10 Urine Color Yellow Urine Appearance Clear (Clear) Urine pH 5.0 (4.5-7.5) Ur Specific [place] 1.028 (1.000-1.030) Urine Protein Negative (Negative) Urine Glucose (UA) 3+ H (Negative)
[2020-10-03] MEDS ORDERED: INSULIN GLARGINE SOLOSTAR 100 UNITS/ML 3 ML PEN SC SCH (21:00)
[2020-10-04] MEDS: guaiFENesin 600 MG TABCR PO SCH ×2 (07:58→20:34)
[2020-10-04] MEDS: SERTRALINE HCL 50 MG TABLET PO SCH (07:58)
[2020-10-04] MEDS: ATORVASTATIN 40 MG TAB PO SCH (07:58)
[2020-10-04] MEDS: ASPIRIN 81 MG ECTAB PO SCH (07:58)
[2020-10-04] MEDS: CYANOCOBALAMIN 500 MCG TABLET (VITAMIN B-12) PO SCH (07:59)
[2020-10-04] MEDS: ENOXAPARIN INJ 40 MG/0.4 ML SYR SQ SCH (07:59)
[2020-10-04] MEDS: PANTOprazole 40 MG TAB PO SCH (07:59)
[2020-10-04 08:05] LABS: Albumin Level 2.6 gm/dl (3.4-5.0); BUN Creatinine Ratio 30.8 (10-20); Calcium 8.9 mg/dl (8.5-10.1); Creatinine Clr Calc Pharmacy 132.3 ml/min; Est GFR (African American) 128.6; Est GFR (Non-African American) 110.9; Potassium 3.9 mmol/L (3.5-5.1)
[2020-10-04 08:12] LABS: Albumin Globulin Ratio 0.6 (0.9-2); Bilirubin,Total 0.7 mg/dl (0.2-1); Globulin 4.5 gm/dl (2.5-4.0); Total Protein 7.1 gm/dl (6.4-8.2)
[2020-10-04] MEDS: dexAMETHasone 6 MG in SYRINGE 0 ML IV SCH (09:00)
[2020-10-04] MEDS: INSULIN ASPART 100 UNITS/ML 3 ML PEN SC SCH ×4 (09:15→21:43)
[2020-10-04] MEDS: INSULIN HUMAN NPH SC SCH (09:17)
[2020-10-04] MEDS: REMDESIVIR 100 MG in SODIUM CHLORIDE 0.9% 230 ML IV SCH (12:51)
--- NOTE | 2020-10-04 14:01 | Pharmacy Report ---
Glycemic Control Progress Note - Date of Service October 04, 2020 - Scope Glycemic Pharmacist consulted for glycemic control to write orders per [facility] inpatient glycemic control protocol. - Objective Accuchecks BSG(last 24 hours):: 10/03/20 10/03/20 10/04/20 16:56 19:59 07:08 Glucose 55 L POC Glucose 176 H 132 H 10/04/20 10/04/20 10/04/20 07:13 07:14 07:36 Glucose POC Glucose 61 L* 56 L* 82 10/04/20 11:48 Glucose POC Glucose 78 HbA1c:: Hemoglobin A1c 7.8 % (4.5-5.6) H 10/03/20 06:41 - Recent Pertinent Medications The patient is currently receiving: * Basal insulin: Lantus 24 units every 24 hours (at night) * Correctional Insulin: Novolog Correction per scale ACHS Goal Range: Low 110 mg/dL - High 140 mg/dL Correction Factor: 20 mg/dL/unit * Prandial insulin: Per carb ratio of 1 unit per 6 grams CHO consumed - Outpatient Anti-Diabetic Meds Jardiance 25 mg daily metformin 1 gm BIDM Novolog with meals Tresiba 24 units daily - Assessment & Plan ASSESSMENT: * See progress note from 10/03/20 for more background info, in short: * Pt receiving SQ basal bolus insulin regimen for hyperglycemia secondary to baseline DM (outpatient regimen on hold) and currently on dexamethasone 6 mg IV daily * Patient is currently receiving an average of 58 units of insulin per day * 24 units of basal insulin * 34 units of prandial/correctional insulin * BSGs ranging 132 - 268 mg/dl over the past 24hrs * Changes needed to insulin regimen: * AM Fasting BSG = 55 mg/dl. This is below goal range for patient based on inpatient targets and co-morbidities. Will reduce basal insulin by 20% to Lantus 20 units nightly. Will scheduled NPH 0.4 units/kg (25 units) for steroid hyperglycemia. * Post-prandial BSGs trended downwards yesterday after elevated lunch BSG. Loosened to weight-based stress of 2. * Total daily dose = ~50-60 -- adjusted insulin appropriately. PLAN FOR INPATIENT GLYCEMIC CONTROL: * Decreasing Lantus to 20 units SQ HS plus ADDING NPH 25 units SQ daily * LOOSENING correction factor to 30 mg/dl/unit * LOOSENING carb ratio to 1 unit per 10 grams CHO consumed * Continuing goal range of Low 110 mg/dL - High 140 mg/dL * Please note that the plan above was derived based on current level of insulin resistance and hospital stress. These recommendations are appropriate for inpatient admission only. Plan of care upon discharge will need to be reassessed to avoid potential outpatient hypo/hyperglycemia. Thank you.
[2020-10-04] MEDS: SODIUM CHLORIDE 0.9% 10ML FLUSH IV SCH (14:29)
[2020-10-04] MEDS ORDERED: INSULIN GLARGINE SOLOSTAR 100 UNITS/ML 3 ML PEN SC SCH (21:00)
--- NOTE | 2020-10-04 21:46 | Hospitalist Progress Note ---
Date of Service October 04, 2020 Assessment & Plan (1) Acute hypoxemic respiratory failure: Acute respiratory failure with hypoxia Multifocal COVID pneumonia COVID Screen:Positive CXR:Bilateral predominantly interstitial airspace opacities. Diagnostic considerations include multifocal pneumonia versus congestive failure. Clinical and radiographic follow-up is recommended. Procalcitonin:0.12 Troponin negative CRP:15.30 Ferritin:633.6 D-Dimer:870 Blood Cultures:No growth to date Continue Remdesivir, Dexamethasone as per Protocol Coalescent plasma when available as per patient's consent-- Will administer when available Continue Isolation precautions--Airborne/Contact Encouraged frequent Proning Lasix as needed Albuterol PRN Continue Supplemental Oxygen--wean off as able DVT prophylaxis Monitor LFTs, renal function while on Remdesivir No indication for antibiotics currently Slowly improving DM II HhA1C: 6.03 July 2020 Hold PO meds Continue insulin therapy while hospitalized Monitor BGs Glycemic Pharmacy consulted Hyperlipidemia On Lipitor Monitor LFTs Elevated D dimer Due to COVID Consider further work up if clinically indicated Chronic Normocytic Anemia Monitor CBC Past alcohol abuse As per records DVT Px: Lovenox SQ Code Status Full code Admission and Anticipated Discharge Date Admission Date: October 02, 2020 Subjective Patient is seen and examined at bedside States feeling better Had hypoglycemic episode this morning--felt dizzy at the time Currently asymptomatic Denies cough chest pain, shortness of breath, dizziness, nausea, abdominal pain, diarrhea, headache Wean off of oxygen as able Review of Systems Review of Systems: All systems reviewed & are unremarkable except as noted in HPI & below Physical Exam Physical Exam: Physical Exam: Vitals signs as noted above General Appearance:Moderately built and nourished, no apparent distress Head: normocephalic, Atraumatic Eyes: normal inspection, EOMI Neck: supple, Trachea midline Respiratory/Chest: Normal breath sounds, Minimal R basal crackles Cardiovascular: S1, S2, No murmur Abdomen/GI:Soft, Non tender, Bowel sounds present Extremities/Musculoskelatal:normal inspection, no edema Neurologic/Psych:AAOX3, grossly no focal neurological deficits Skin: normal color, warm, +Psoriatic Lesions on extremities Results & Data Results & Data ([facility]) Vital Signs (Past 12 Hours) Vital Signs Temp Pulse Resp BP Pulse Ox 10/04/20 20:38 36.6 C 71 18 137/81 96 10/04/20 16:24 36.6 C 72 16 125/77 94 Laboratory Results BMP 10/04/20 07:08 Sodium 140 Potassium 3.9 D Chloride 104 Carbon Dioxide 30 BUN 20 H Creatinine 0.63 Glucose 55 L Calcium 8.9 Liver Function 10/04/20 Range/Units 07:08 Total Bilirubin 0.7 (0.2-1) mg/dl AST 20 (15-37) U/L ALT 13 (12-78) U/L Alkaline Phosphatase 54 (45-117) U/L Albumin 2.6 L (3.4-5.0) gm/dl
[2020-10-05 06:50] LABS: Albumin Level 2.6 gm/dl (3.4-5.0); Calcium 8.8 mg/dl (8.5-10.1); Creatinine Clr Calc Pharmacy 126.3 ml/min; Est GFR (African American) 126.1; Est GFR (Non-African American) 108.8; Potassium 4.1 mmol/L (3.5-5.1)
[2020-10-05 06:52] LABS: Albumin Globulin Ratio 0.6 (0.9-2); Bilirubin,Total 0.6 mg/dl (0.2-1); Globulin 4.5 gm/dl (2.5-4.0); Total Protein 7.1 gm/dl (6.4-8.2)
[2020-10-05] MEDS: dexAMETHasone 6 MG in SYRINGE 0 ML IV SCH (08:27)
[2020-10-05] MEDS: ASPIRIN 81 MG ECTAB PO SCH (08:28)
[2020-10-05] MEDS: SERTRALINE HCL 50 MG TABLET PO SCH (08:28)
[2020-10-05] MEDS: PANTOprazole 40 MG TAB PO SCH (08:29)
[2020-10-05] MEDS: ATORVASTATIN 40 MG TAB PO SCH (08:29)
[2020-10-05] MEDS: CYANOCOBALAMIN 500 MCG TABLET (VITAMIN B-12) PO SCH (08:29)
[2020-10-05] MEDS: guaiFENesin 600 MG TABCR PO SCH (08:31)
[2020-10-05] MEDS: ENOXAPARIN INJ 40 MG/0.4 ML SYR SQ SCH (08:31)
[2020-10-05] MEDS: INSULIN ASPART 100 UNITS/ML 3 ML PEN SC SCH ×2 (08:37→12:16)
[2020-10-05] MEDS: INSULIN HUMAN NPH SC SCH (08:38)
[2020-10-05] MEDS: REMDESIVIR 100 MG in SODIUM CHLORIDE 0.9% 230 ML IV SCH (11:08)
[2020-10-05] MEDS: SODIUM CHLORIDE 0.9% 10ML FLUSH IV SCH (12:11)
--- NOTE | 2020-10-05 14:37 | Hospitalist Progress Note ---
Date of Service October 05, 2020 Assessment & Plan (1) Acute hypoxemic respiratory failure: Acute respiratory failure with hypoxia Multifocal COVID pneumonia COVID Screen:Positive CXR:Bilateral predominantly interstitial airspace opacities. Diagnostic considerations include multifocal pneumonia versus congestive failure. Clinical and radiographic follow-up is recommended. Procalcitonin:0.12 Troponin negative CRP:15.30 Ferritin:633.6 D-Dimer:870 Blood Cultures:No growth to date Continue Remdesivir, Dexamethasone as per Protocol Completed 4 days of Remdesivir Coalescent plasma when available as per patient's consent-- Unavailable due to blood type Continue Isolation precautions--Airborne/Contact Encouraged frequent Proning Lasix as needed Albuterol PRN Weaned off of oxygen DVT prophylaxis 2 Step: Did not qualify for oxygen DM II HhA1C: 6.03 July 2020 Hold PO meds Continue insulin therapy while hospitalized Monitor BGs Glycemic Pharmacy consulted Hyperlipidemia On Lipitor Monitor LFTs Elevated D dimer Due to COVID Consider further work up if clinically indicated Chronic Normocytic Anemia Monitor CBC Past alcohol abuse As per records DVT Px: Lovenox SQ Code Status Full code Disposition Plan to discharge home today Admission and Anticipated Discharge Date Admission Date: October 02, 2020 Subjective Patient is seen and examined at bedside No complaints today Eager to get discharged 2 Step: Did not qualify for oxygen Denies cough chest pain, shortness of breath, dizziness, nausea, abdominal pain, diarrhea, headache Saturating well off oxygen Review of Systems Review of Systems: All systems reviewed & are unremarkable except as noted in HPI & below Physical Exam Physical Exam: Physical Exam: Vitals signs as noted above General Appearance:Moderately built and nourished, no apparent distress Head: normocephalic, Atraumatic Eyes: normal inspection, EOMI Neck: supple, Trachea midline Respiratory/Chest: Normal breath sounds, CTA Cardiovascular: S1, S2, No murmur Abdomen/GI:Soft, Non tender, Bowel sounds present Extremities/Musculoskelatal:normal inspection, no edema Neurologic/Psych:AAOX3, grossly no focal neurological deficits Skin: normal color, warm, +Psoriatic Lesions on extremities Results & Data Results & Data ([facility]) Vital Signs (Past 12 Hours) Vital Signs Temp Pulse Pulse Pulse Pulse Pulse Resp 10/05/20 10:11 66 67 66 10/05/20 07:54 36.7 C 66 20 10/05/20 07:22 67 Resp Resp Resp BP Pulse Ox Pulse Ox Pulse Ox 10/05/20 10:11 20 20 20 96 96 10/05/20 07:54 150/86 H 97 10/05/20 07:22 Pulse Ox 10/05/20 10:11 93 10/05/20 07:54 10/05/20 07:22 Laboratory Results [facility] 10/05/20 05:55 Sodium 140 Potassium 4.1 Chloride 105 Carbon Dioxide 30 BUN 16 Creatinine 0.66 Glucose 109 H Calcium 8.8 Liver Function 10/05/20 Range/Units 05:55 Total Bilirubin 0.6 (0.2-1) mg/dl AST 22 (15-37) U/L ALT 20 (12-78) U/L Alkaline Phosphatase 58 (45-117) U/L Albumin 2.6 L (3.4-5.0) gm/dl
--- NOTE | 2020-10-05 14:44 | Discharge Summary ---
Date of Service October 05, 2020 Admission HPI Per Admitting Provider History obtained from patient and records. Medical history significant for DM2 insulin requiring, hyperlipidemia, chronic anemia (baseline hemoglobin of 11), past alcohol abuse. Last week patient noted generalized weakness, chills, fatigue symptoms. Sick COVID-19 contacts at home. Outpatient COVID-19 test noted to be positive. Patient advised to quarantine and to adhere to supportive management at home. Yesterday, patient noted shortness of breath worse on exertion with dry cough symptoms. No chest pain. O2 sats noted to be 80s on pulse ox at home. At the ER, patient received Decadron. Medical History as above Surgical History : Cataract surgery Family History : Diabetes, stroke Personal/Social history : Non-smoker, possible alcohol abuse, [place] ethn [place] Admission Exam Per Admitting Provider Physical Exam Physical Exam: GENERAL: Comfortable, pleasant, no respiratory distress SKIN: Pallor , warm HEENT: Partial alopecia, bespectacled, pale palpebral conjunctivae, no ptosis, dry buccal mucosa, nasal cannula in place NECK : Supple, no tenderness CHEST : Decreased breath sounds, occasional expiratory wheezes, no tenderness HEART : RRR, no obvious murmurs ABDOMEN: Some distention, nontender EXTREMITIES : No LE swelling/tenderness, no other conspicuous deformities noted NEUROLOGIC : Coherent, no facial asymmetry, no other gross focality Principal Diagnosis Acute respiratory failure with hypoxia Multifocal COVID 19 pneumonia Discharge Data Allergies Allergy/AdvReac Type Severity Reaction Status Date / Time Bactrim AdvReac Mild GI SYMPTOMS Verified 05/15/18 00:40 sulfamethoxazole AdvReac Mild GI SYMPTOMS Verified 10/01/20 22:45 trimethoprim AdvReac Mild GI SYMPTOMS Verified 10/01/20 22:45 EGGS AdvReac Mild GI SYMPTOMS Uncoded 10/01/20 22:45 Consultations 10/01/20 23:46 ED Decision to Admit Stat Procedures Performed CXR:Bilateral predominantly interstitial airspace opacities. Diagnostic considerations include multifocal pneumonia versus congestive failure. Clinical and radiographic follow-up is recommended. Hospital Course (1) Acute hypoxemic respiratory failure: Acute respiratory failure with hypoxia Multifocal COVID pneumonia COVID Screen:Positive CXR:Bilateral predominantly interstitial airspace opacities. Diagnostic considerations include multifocal pneumonia versus congestive failure. Clinical and radiographic follow-up is recommended. Procalcitonin:0.12 Troponin negative CRP:15.30 Ferritin:633.6 D-Dimer:870 Blood Cultures:No growth to date Continue Remdesivir, Dexamethasone as per Protocol Completed 4 days of Remdesivir Coalescent plasma when available as per patient's consent-- Unavailable due to blood type Continue Isolation precautions--Airborne/Contact Encouraged frequent Proning Lasix as needed Albuterol PRN Weaned off of oxygen DVT prophylaxis 2 Step: Did not qualify for oxygen DM II HhA1C: 6.03 July 2020 Hold PO meds Continue insulin therapy while hospitalized Monitor BGs Glycemic Pharmacy consulted Hyperlipidemia On Lipitor Monitor LFTs Elevated D dimer Due to COVID Consider further work up if clinically indicated Chronic Normocytic Anemia Monitor CBC Past alcohol abuse As per records DVT Px: Lovenox SQ Code Status Full code Disposition Plan to discharge home today Total Time Total Time Spent Total Time Spent (In Minutes): 43 minutes Total Time Includes: Examination of the Patient, Discharge Planning, Medication Reconciliation, Communication With Other Providers and Other Discharge Plan Discharge Items Patient Disposition: Home - Self-Care Reason For Visit: RESPI FAILURE, COVID PNX Discharge Diagnosis: Acute respiratory failure with hypoxia Multifocal COVID 19 pneumonia Condition on Discharge: Good Activity: Per Instructions section Exercise/Sports: Gradually increase as tolerated Non-emergency contact: Primary Care Provider Call non-emergency contact if: you have any medication questions, your symptoms worsen, your pain is not controlled, your pain is worsening, your pain is unusual for you, your pain is concerning for you and you have a fever Follow-up/Referrals: Jacob Reyes DO [Primary Care Provider] - (Date & Time 10/10/2020 1:40 PM Provider Jacob Reyes DO Department [facility] PLEASE NOTE THAT THIS IS A TELEVIDEO APPOINTMENT. PLEASE FOLLOW THE DIRECTIONS IN THE EMAIL YOU WILL RECEIVE. IF YOU HAVE ANY QUESTIONS, PLEASE CALL [phone]) Diet: Carb Consistent or DM2 and Heart Healthy Addtl Attending Provider Instructions: Follow up with your PCP on 10/10/2020 at 1:40 PM Your final blood cultures are pending at the time of discharge. Follow-up with your physician for results. Continue monitoring your intact oxygen saturation levels using pulse oximetry at home as advised. Seek immediate medical attention if your symptoms reoccur or worsen Home Isolation COVID-19 Instructions The following information about Home Isolation is from the CDC Website: https://www.cdc.gov/coronavirus/2019-ncov/hcp/xjpmztjk-yiacwhk-gqthuj.html Stay home except to get medical care People who are mildly ill with COVID-19 are able to isolate at home during their illness. You should restrict activities outside your home, except for getting medical care. Do not go to work, school, or public areas. Avoid using public transportation, ride-sharing, or taxis. Separate yourself from other people and animals in your home People: As much as possible, you should stay in a specific room and away from other people in your home. Also, you should use a separate bathroom, if available. Animals: You should restrict contact with pets and other animals while you are sick with COVID-19, just like you would around other people. Although there have not been reports of pets or other animals becoming sick with COVID-19, it is still recommended that people sick with COVID-19 limit contact with animals until more information is known about the virus. When possible, have another member of your household care for your animals while you are sick. If you are sick with COVID-19, avoid contact with your pet, including petting, snuggling, being kissed or licked, and sharing food. If you must care for your pet or be around animals while you are sick, wash your hands before and after you interact with pets and wear a face mask. Call ahead before visiting your doctor If you have a medical appointment, call the healthcare provider and tell them that you have or may have COVID-19. This will help the healthcare providers office take steps to keep other people from getting infected or exposed. Wear a face mask You should wear a face mask when you are around other people (e.g., sharing a room or vehicle) or pets and before you enter a healthcare providers office. If you are not able to wear a face mask (for example, because it causes trouble breathing), then people who live with you should not stay in the same room with you, or they should wear a face mask if they enter your room. Cover your coughs and sneezes Cover your mouth and nose with a tissue when you cough or sneeze. Throw used tissues in a lined trash can. Immediately wash your hands with soap and water for at least 20 seconds or, if soap and water are not available, clean your hands with an alcohol-based hand welder first class that contains at least 60% alcohol. Clean your hands often Wash your hands often with soap and water for at least 20 seconds, especially after blowing your nose, coughing, or sneezing; going to the bathroom; and before eating or preparing food. If soap and water are not readily available, use an alcohol-based hand welder first class with at least 60% alcohol, covering all surfaces of your hands and rubbing them together until they feel dry. Soap and water are the best option if hands are visibly dirty. Avoid touching your eyes, nose, and mouth with unwashed hands. Avoid sharing personal household items You should not share dishes, drinking glasses, cups, eating utensils, towels, or bedding with other people or pets in your home. After using these items, they should be washed thoroughly with soap and water. Clean all high-touch surfaces everyday High touch surfaces include counters, tabletops, doorknobs, bathroom fixtures, toilets, phones, keyboards, tablets, and bedside tables. Also, clean any s urfaces that may have blood, stool, or body fluids on them. Use a household cleaning spray or wipe, according to the label instructions. Labels contain instructions for safe and effective use of the cleaning product including precautions you should take when applying the product, such as wearing gloves and making sure you have good ventilation during use of the product. Monitor your symptoms Seek prompt medical attention if your illness is worsening (e.g., difficulty breathing).Beforeseeking care, call your healthcare provider and tell them that you have, or are being evaluated for, COVID-19. Put on a face mask before you enter the facility. These steps will help the healthcare providers office to keep other people in the office or waiting room from getting infected or exposed. Ask your healthcare provider to call the local or state health department. Persons who are placed under active monitoring or facilitated self- monitoring should follow instructions provided by their local health department or occupational health professionals, as appropriate. When working with your local health department check their available hours. If you have a medical emergency and need to call 911, notify the dispatch personnel that you have, or are being evaluated for COVID-19. If possible, put on a face mask before emergency medical services arrive. Discontinuing home isolation Patients with confirmed COVID-19 should remain under home isolation precautions until the risk of secondary transmission to others is thought to be low. The decision to discontinue home isolation precautions should be made on a [id number] basis, in consultation with healthcare providers and state and local health departments. Coronavirus disease 2019 (COVID-19) is a virus that causes a respiratory illness. It is caused by a coronavirus called 2019 novel coronavirus (2019- nCoV). There are many types of coronavirus. Coronaviruses are a very common cause of bronchitis. They may sometimes cause lung infection(pneumonia). Symptoms can range from mild to severe respiratory illness. These viruses are also foundin some animals. COVID-19 was first found in people in [facility], in late 2018. In 2019, several cases of COVID-19 have been confirmed in the [place] Public health officials are working to find the source. How the virus spreads is not yet fully known. It may be spread through droplets of fluid that a person coughs or sneezes into the air. It may be spread if you touch a surface with virus on it, such as a handle or object, and then touch your mouth. What are the symptoms of COVID-19? Some people have no symptoms or mild symptoms. Symptoms may appear 2 to 14 days after contact with the virus. Symptoms can include: Fever Coughing Trouble breathing What are possible complications from COVID-19? In many cases, this virus can cause infection (pneumonia) in both lungs. In some cases, this can cause . How is COVID-19 diagnosed? Your healthcare provider will ask about your symptoms. He or she will also ask about your recent travel and contact with sick people. Testing for the virus is only done through the CDC. If yourhealthcare provider thinks you may have COVID- 19, he or she will work with your local health department and the CDC on testing. Follow all instructions from your healthcare provider. COVID-19 is diagnosed by: Nasal and throat swab. A cotton-tipped swab is wiped inside your nose or throat. This is done to check for viruses in your nasal mucus. Sputum culture. A small sample of mucus coughed from your lungs (sputum) is collected if you have a cough. It is checked for the virus. How is COVID-19 treated? There is currently no medicine to treat the virus. Treatment is done to help your body while it fights the virus. This is known as supportive care. Supportive care may include: Pain medicine. These include acetaminophen and ibuprofen. They are used to help ease pain and reduce fever. Bed rest. This helps your body fight the illness. For severe illness, you may need to stay in the hospital. Care during severe illness may include: IV (intravenous) fluids.These are given through a vein to help keep your body hydrated. Oxygen. Supplemental oxygen or ventilation with a breathing machine (ventilator) may be given. This is done to keep enough oxygen in your body. Are you at risk for COVID-19? If youve been to a place where people have been sick with this virus, you are at risk for infection. You are at risk if you: Recently traveled to an affected area Had contact with a sick person who recently traveled to this area Had contact with a person who was diagnosed with COVID-19 How can COVID-19 be prevented? There is no vaccine yet. The best prevention is to not have contact with the virus. The CDC advises that people should not travel to areas where there are COVID-19 outbreaks right now for any reason that is not urgent. To help prevent spreading the infection, wash your hands often, or use an alcohol-basedhand welder first class. If you are in an area with COVID-19: Wash your hands often. Or use an alcohol-based hand welder first class often. Only touch your eyes, nose, or mouth with clean hands. Dont have contact with people who are sick. Follow local instructions about being in public. For example, you may be told to not use public transport for a period of time. Stay away from markets that have live or animals. Wash your hands after touching any animals. Don't touch animals that may be sick. Dont share eating or drinking tools with sick people. Dont kiss someone who is sick. Clean surfaces often with disinfectant. If you were in an area with COVID-19 in the last 14 days: Call your healthcare provider. He or she can talk with local health staff to see what action may be needed. Follow all instructions from your provider. Take your temperature every morning and evening for at least 14 days. This is to check for fever. Keep a record of the readings. Keep watch for symptoms of the virus. Tell your provider right away if you have symptoms. If you were in an area with COVID-19 and have a fever or other symptoms: Dont panic. Keep in mind that other illnesses can cause similar symptoms. Stay away from work, school, and public places. Limit physical contact with family members. Don't kiss anyone or share eating or drinking utensils. Clean surfaces you touch with disinfectant. This is to help prevent the virus from spreading. Call your healthcare provider. Explain that you have been exposed to COVID-19 and have symptoms. Do this before going to any hospital. Wait for instructions. Keep in mind that healthcare staff may wear protective equipment such as masks, gowns, gloves, and eye protection. You may be put in a separate room. This is to prevent the possible virus from spreading. Tell the healthcare staff about recent travel. This includes local travel on public transport. Staff may need to find other people you have been in contact with. Follow all instructions the healthcare staff give you. If you have been diagnosed with COVID-19 Follow all instructions from your healthcare provider. Dont leave your home, except to get medical care. Call your healthcare providers office before going. They can prepare and give you instructions. This will help prevent the virus from spreading. Dont go to work, school, or public areas. Dont use public transport or taxis. Stay away from other people in your home. Have them wear face masks around you. Dont share household items or food. Wear a face mask if you can. This includes at home or in a medical facility. Cover your face with a tissue when you cough or sneeze. Throw the tissue away. Wash your hands. Wash your hands often. Caregivers should: Follow all instructions from healthcare staff. Wear a face mask and protective clothing as advised. Wash hands often. Keep track of the sick persons symptoms. Clean surfaces, fabrics, and laundry thoroughly. Keep other people away from the sick person. When to call your healthcare provider Call your healthcare provider: If youve recently traveled and have symptoms If you have been diagnosed with COVID-19 and your symptoms are worse To learn more To find out more about COVID-19, visit the CDC website at www.cdc.gov/coronavirus/2019-ncov/index.html. [employer]. [address] [place] [address]. All rights reserved. This information is not intended as a substitute for professional medical care. Always follow your healthcare professional's instructions. This information has been adapted from [employer] Pending Studies at Discharge: Yes Studies:: Blood Cultures Stand-Alone Forms: My [facility], Smoking Cessation Medications and DC Order Prescriptions: Continued atorvastatin [Lipitor] 40 mg tablet 40 mg PO DAILY RF: 0 sertraline [Zoloft] 100 mg tablet 150 mg PO DAILY RF: 0 cyanocobalamin (vitamin B-12) [Vitamin B-12] 1,000 mcg Tablet 1,000 mcg PO DAILY RF: 0 fluocinonide 0.05 % ointment 1 applic TOPICAL DAILY PRN (Reason: flare ups) RF: 0 pantoprazole [Protonix] 40 mg tablet,delayed release (DR/EC) 40 mg PO DAILY RF: 0 metformin [Glucophage] 1,000 mg tablet 1,000 mg PO BID RF: 0 insulin aspart U-100 [Novolog Flexpen U-100 Insulin] 100 unit/mL (3 mL) insulin pen See Rx Instructions .ROUTE .COMPLEX RF: 0 Tresiba FlexTouch U-200 200 unit/mL (3 mL) insulin pen 24 unit SUBCUT DAILY RF: 0 Jardiance 25 mg tablet 25 mg PO DAILY RF: 0 ondansetron HCl 8 mg Tablet 8 mg PO Q8H PRN (Reason: Nausea) RF: 0 aspirin 81 mg Tablet,Delayed Release (Dr/Ec) 81 mg PO DAILY RF: 0 Discharge Orders: Discharge Order (Routine); Ordered 10/05/20 Ordered By: Pedro Luis Srivastava/Other Patient Handouts: Managing Type 2 Diabetes Admission Data Admit Date/Time: 10/02/20 01:05 Attending Provider: Pedro Luis Alvarez Admit Provider: Huan Wilcox Primary Care Provider: Jacob Reyes Other Providers: Huan Wilcox Other Interventions: Discharge Summary Assessment (RN) Last Done: 10/05/20 15:19
== END 2020-10-05 15:57 | disposition home or self-care (01) | DRG 177 ==
LOC: ED 21:52 → 2W 10-02 01:05